=== PATIENT | male | born 1985 | race Two or more races ===

== ENCOUNTER 2020-10-01 11:27 | Emergency (ER) | payer MEDICAID ==
[2020-10-01] MEDS ORDERED: SODIUM CHLORIDE 0.9% 1,000 ML IV STA (11:48)
--- NOTE | 2020-10-01 11:55 | ED Physician Documentation ---
PD HPI CHEST PAIN - Stated complaint Stated Complaint: CHEST/LT ARM PX - Chief complaint Chief Complaint: Cardiac - History obtained from History obtained from: Patient - History of Present Illness Timing - onset: Enter time (0800), Today Timing - onset during: Other (while driving and eating) Timing - duration: Seconds Timing - details: Abrupt onset, Now resolved Quality: Sharp, Pain Location: Substernal, Left chest Radiation: Left upper extremity Improved by: Other (resolved sponataneously) Associated symptoms: Feeling faint / dizzy (after the episode while on the roof working got dizzy). 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 He has not had persistence of pain he has not had shortness of breath but he did get dizzy and lightheaded while he was up on the roof today. He states that he did not feel well, talked to his boss, and they decided to come to the emergency department. The patient indicates 2 episodes of dizziness while on the roof. Feeling lightheaded. He usually is drinking red bull and he does not think he has had enough fluids on top of that. (It's the only thing he drank yesterday) Review of Systems Constitutional: denies: Fever Eyes: denies: Decreased vision Ears: denies: Ear pain Nose: denies: Congestion Throat: denies: Sore throat Cardiac: reports: Chest pain / pressure. denies: Palpitations, Pedal edema, Calf pain Respiratory: denies: Dyspnea, Cough, Wheezing GI: denies: Abdominal Pain, Nausea, Vomiting : denies: Dysuria, Frequency Skin: denies: Rash Musculoskeletal: denies: Neck pain, Back pain, Extremity pain Neurologic: reports: Numbness (to the left arm resolved.). denies: Generalized weakness, Focal weakness PD PAST MEDICAL HISTORY - Past Surgical History Past Surgical History: No - Present Medications Home Medications: Ambulatory Orders Medication Instructions Recorded Confirmed No Known Home Medications 08/22/14 10/01/20 - Allergies Allergies/Adverse Reactions: Allergies Allergy/AdvReac Type Severity Reaction Status Date / Time No Known Drug Allergies Allergy Verified 10/01/20 11:52 - Social History Does the pt smoke?: No Smoking Status: Never smoker Does the pt drink ETOH?: Yes Does the pt have substance abuse?: Yes - POLST Patient has POLST: No PD ED PE NORMAL - Vitals Vital signs reviewed: Yes (hypertensive ) - General General: Alert and oriented X 3, No acute distress, Well developed/nourished - HEENT HEENT: Atraumatic, PERRL, EOMI, Ears normal - Neck Neck: Supple, no meningeal sign, No bony TTP - Cardiac Cardiac: RRR, No murmur - Respiratory Respiratory: No respiratory distress, Clear bilaterally - Abdomen Abdomen: Soft, Non tender - Back Back: No CVA TTP, No spinal TTP - Derm Derm: Normal color, Warm and dry, No rash - Extremities Extremities: No deformity, No edema - Neuro Neuro: Alert and oriented X 3, contact center rep 2-12 intact, No motor deficit, No sensory deficit, Normal speech Eye Opening: Spontaneous Motor: Obeys Commands Verbal: Oriented GCS Score: 15 - Psych Psych: Normal mood, Normal affect Results - Vitals Vitals: Vital Signs - 24 hr 10/01/20 10/01/20 11:31 12:00 Temperature 36.7 C Heart Rate 70 59 L Respiratory 16 14 Rate Blood Pressure 137/95 H 113/84 H O2 Saturation 96 Oxygen O2 Source Room air - EKG (time done) 1132 Rate: Rate (enter#) (57) Rhythm: NSR [place]: LAD Ischemia: ST elevation c/w repol Compare to prior EKG: Unchanged from prior EKG (SPT 08-22-2014 no changes) Computer interpretation: Agree with computer - Labs Labs: Laboratory Tests 10/01/20 10/01/20 10/01/20 11:35 11:35 11:35 WBC 5.9 RBC 4.77 Hgb 15.1 Hct 44.3 MCV 92.9 MCH 31.7 H MCHC 34.1 RDW 12.3 Plt Count 302 MPV 10.2 Neut # (Auto) 2.6 Lymph # (Auto) 2.7 [place] # (Auto) 0.5 Eos # (Auto) 0.1 Baso # (Auto) 0.0 Absolute Nucleated RBC 0.00 Nucleated RBC % 0.0 Sodium 134 L Potassium 4.1 Chloride 97 L Carbon Dioxide 26 Anion Gap 11.0 BUN 16 Creatinine 0.7 Estimated GFR (MDRD) 128 Glucose 84 Calcium 9.6 Total Bilirubin 1.0 AST 26 ALT 22 Alkaline Phosphatase 74 Troponin I High Sens < 2.3 L Total Protein 8.4 H Albumin 4.6 Globulin 3.8 Albumin/Globulin Ratio 1.2 Lipase 40 - Rads (name of study) chest Radiology: Prelim report reviewed (Impression: No acute pulmonary process.), EMP read indepedently, See rad report Procedures - IVC sono (time) 1145 Bedside IVC sono: IVC measures (cm) (0.82), Dehydration (est 2 liter deficit) PD MEDICAL DECISION MAKING - ED course Complexity details: reviewed old records, reviewed results, re-evaluated patient, considered differential, d/w patient ED course: Previously well and healthy appearing 35-year-old male has developed brief episodes of chest pain earlier this morning and when he became dizzy on the roof today of his work he has come to the emergency department for evaluation. His electrocardiogram shows ST elevation consistent with repolarization and he is found to be dehydrated on interrogation the inferior vena cava. On the order of 2 L. He is administered a liter of saline. Dizziness resolves. Departure - Departure Disposition: 01 Home, Self Care Clinical Impression: Dehydration Condition: Stable Instructions: ED Dehydration Follow-Up: [facility] [Provider Group]
[2020-10-01 12:07] LABS: BASOPHILS % (AUTO) 0.5 %; EOSINOPHILS # (AUTO) 0.1 10^3/uL (0.0-0.7); EOSINOPHILS % (AUTO) 1.5 %; HGB - HEMOGLOBIN 15.1 g/dL (14.0-18.0); LYMPHOCYTES # (AUTO) 2.7 10^3/uL (1.5-3.5); LYMPHOCYTES % (AUTO) 45.2 %; MEAN CORPUSCULAR HEMOGLOBIN 31.7 pg (27.0-31.0); MEAN CORPUSCULAR HGB CONC 34.1 g/dL (32.0-36.0); MEAN CORPUSCULAR VOLUME 92.9 fL (80.0-94.0); MEAN PLATELET VOLUME 10.2 fL (7.4-11.4); MONOCYTES # (AUTO) 0.5 10^3/uL (0.0-1.0); MONOCYTES % (AUTO) 9.1 %; NEUTROPHILS # (AUTO) 2.6 10^3/uL (1.5-6.6); NEUTROPHILS % (AUTO) 43.7 %; PLT - PLATELET COUNT 302 10^3/uL (130-450); RED BLOOD COUNT 4.77 10^6/uL (4.70-6.10); RED CELL DISTRIBUTION WIDTH 12.3 % (12.0-15.0); WHITE BLOOD COUNT 5.9 x10^3/uL (4.8-10.8)
[2020-10-01 12:22] LABS: ALBUMIN 4.6 g/dL (3.2-5.5); ALBUMIN/GLOBULIN RATIO 1.2 (1.0-2.2); CALCIUM 9.6 mg/dL (8.5-10.3); CREATININE 0.7 mg/dL (0.6-1.2); TOTAL PROTEIN 8.4 g/dL (6.7-8.2)
--- NOTE | 2020-10-01 14:07 | XRAY Report ---
PROCEDURE: Chest 1 View X-Ray INDICATIONS: chest pain TECHNIQUE: One view of the chest was acquired. COMPARISON: Chest x-ray 08/22/2014 FINDINGS: Surgical changes and devices: None. Lungs and pleura: No pleural effusions or pneumothorax. Lungs are clear. Mediastinum: Mediastinal contours appear normal. Heart size is normal. Bones and chest wall: No suspicious bony lesions. Overlying soft tissues appear unremarkable. IMPRESSION: No acute pulmonary process. Reviewed by: Martha Maldonado MD on 10/01/2020 12:15 PM [facility] Approved by: Martha Maldonado MD on 10/01/2020 12:15 PM [facility] Station ID: [id number]
[2020-10-01 14:10] VITALS: BP 123/82
== END 2020-10-01 14:49 | disposition home or self-care (01) ==
LOC: ED 11:27
DX: E86.0 Dehydration (principal); R07.89 Other chest pain; R94.31 Abnormal electrocardiogram [ECG] [EKG]
CPT/HCPCS: 36415; 80053; 83690; 84484; 85025; 93005; 96360; 99284